=== PATIENT | male | born 1980 ===

== ENCOUNTER 2018-04-07 17:19 | Emergency (ER) | payer MEDICAID ==
[2018-04-07 17:26] VITALS: RESP 18
[2018-04-07] MEDS ORDERED: Lidocaine 5% Patch TD STA (17:32)
[2018-04-07] MEDS ORDERED: Lidocaine 5% Patch TD ONE (17:41)
--- NOTE | 2018-04-07 18:11 | C.PDOC ---
History Of Present Illness 37 year old male presents to the ED complaining of back pain that began yesterday. Patient reports he was seen by pain management in [place] 6 months ago where he was evaluated, had an MRI and he got a "spine injection" that made him feel better until yesterday when he picked up an ice cooler and he developed pain. He denies any radiation of pain, incontinence, urinary symptoms , weakness, numbness, tingling or other associated symptoms. Time Seen by Provider: 04/07/18 17:29 Chief Complaint (Nursing): Back Pain History Per: Patient History/Exam Limitations: no limitations Onset/Duration Of Symptoms: Hrs Current Symptoms Are (Timing): Still Present Associated Symptoms: denies: Incontinence, New Weakness, New Numbness Exacerbating Factor(s): Movement Past Medical History Reviewed: Historical Data, Nursing Documentation, Vital Signs Vital Signs: Last Vital Signs Temp 98.7 F 04/07/18 18:20 Pulse 86 04/07/18 18:20 Resp 18 04/07/18 18:20 BP 127/68 04/07/18 18:20 Pulse Ox 98 04/07/18 19:17 - Medical History PMH: HIV Surgical History: No Surg Hx Family History: States: No Known Family Hx - Social History Hx Alcohol Use: No Hx Substance Use: No Review Of Systems Except As Marked, All Systems Reviewed And Found Negative. Respiratory: Negative for: Shortness of Breath Genitourinary: Negative for: Incontinence Musculoskeletal: Positive for: Back Pain Neurological: Negative for: Weakness, Numbness Physical Exam - Physical Exam Appears: Non-toxic, No Acute Distress Skin: Normal Color, Warm, Dry Head: Atraumatic, Normacephalic Eye(s): bilateral: Normal Inspection Oral Mucosa: Moist Neck: Supple Back: Vertebral Tenderness, Muscle Spasm (Bilateral ), Paraspinal Tenderness, Other (Midline and paraspinal pain with movement and bending ) Extremity: Normal ROM Neurological/Psych: Oriented x3, Normal Motor, Normal Sensation, Normal Reflexes Gait: Steady ED Course And Treatment O2 Sat by Pulse Oximetry: 98 (RA) Pulse Ox Interpretation: Normal Medical Decision Making Medical Decision Making: Impression: Low back pain Orders: Lidoderm patch Toradol 60mg IM Valium 5mg PO On reassessment, patient reports feeling better. Patient is ambulatory. Patient stable and ready for discharge. Patient instructed to follow up with pain management. Disposition - Disposition Referrals: Apolinar Melchor MD [Staff Provider] - Sharan Simental MD [Staff Provider] - Disposition: HOME/ ROUTINE Disposition Time: 18:13 Condition: IMPROVED Additional Instructions: Follow up with PMD within 1-2 days. Return to ED if feel worse. Prescriptions: Lidocaine 5% [Lidoderm] 1 patch TP DAILY #30 patch Ketorolac Tromethamine [Toradol] 10 mg PO TID #30 tab diaZEpam [Valium] 2 mg PO TID #15 tab Instructions: Low Back Pain in Adults Forms: [employer] (Salvadorean) - Clinical Impression Clinical Impression: Low back pain - PA / PERSONAL COACH / Resident Statement MD/DO has reviewed & agrees with the documentation as recorded. - Scribe Statement The provider has reviewed the documentation as recorded by the Scribe Susan Boyd All medical record entries made by the Scribe were at my direction and personally dictated by me. I have reviewed the chart and agree that the record accurately reflects my personal performance of the history, physical exam, medical decision making, and the department course for this patient. I have also personally directed, reviewed, and agree with the discharge instructions and disposition.
[2018-04-07 18:20] VITALS: BP 127/68; PULSE 86; TEMP 98.7
[2018-04-07 18:36] VITALS: O2SAT 98
== END 2018-04-07 18:21 | disposition home or self-care (01) ==
LOC: C.ER 17:19
DX: M54.5 Low back pain (principal)
CPT/HCPCS: 96372; 99283; J1885

== ENCOUNTER 2018-07-31 20:10 | Emergency (ER) | payer MEDICAID ==
--- NOTE | 2018-07-31 20:44 | C.PDOC ---
History Of Present Illness 38 year old male presents to the emergency department with complaints of nausea, vomiting, and abdominal pain described as a burning sensation since 07-29-18. Patient states he stopped drinking on that date, but has not experienced any "shakes". Time Seen by Provider: 07/31/18 20:43 Chief Complaint (Nursing): GI Problem History Per: Patient History/Exam Limitations: no limitations Onset/Duration Of Symptoms: Days (3) Current Symptoms Are (Timing): Still Present Context: Other (alcohol) Location Of Pain/Discomfort: Other (abdomen) Quality Of Discomfort: Burning, "Pain" Associated Symptoms: Nausea, Vomiting Past Medical History Reviewed: Historical Data, Nursing Documentation, Vital Signs Vital Signs: Last Vital Signs Temp 99.6 F 07/31/18 20:20 Pulse 85 07/31/18 20:20 Resp 18 07/31/18 20:20 BP 123/79 07/31/18 20:20 Pulse Ox 99 07/31/18 20:20 - Medical History PMH: HIV Surgical History: No Surg Hx Family History: States: No Known Family Hx - Social History Hx Alcohol Use: Yes Hx Substance Use: No - Immunization History Hx Tetanus Toxoid Vaccination: No Hx Influenza Vaccination: No Hx Pneumococcal Vaccination: No Review Of Systems Constitutional: Negative for: Fever, Chills Gastrointestinal: Positive for: Nausea, Vomiting, Abdominal Pain Physical Exam - Physical Exam Appears: Non-toxic, No Acute Distress Skin: Warm, Dry Head: Normacephalic Eye(s): bilateral: Normal Inspection, PERRL, EOMI Oral Mucosa: Moist Neck: Trachea Midline, Supple Chest: Symmetrical, No Tenderness Cardiovascular: Rhythm Regular, No Murmur Respiratory: No Rales, No Rhonchi, No Wheezing Gastrointestinal/Abdominal: Soft, No Tenderness, No Guarding, No Rebound Neurological/Psych: Oriented x3 ED Course And Treatment - Laboratory Results Result Diagrams: 07/31/18 20:52 07/31/18 20:52 O2 Sat by Pulse Oximetry: 99 (RA) Pulse Ox Interpretation: Normal Progress Note: Plan: Chemistry. Bloodwork. Protonix 40mg IVP. NaCl IV Fluids. Zofran 4mg IVP. Urinalysis Reevaluation Time: 23:15 Reassessment Condition: Improved Disposition Counseled Patient/Family Regarding: Studies Performed, Diagnosis, Need For Fol lowup, Rx Given - Disposition Referrals: Jay Jacome DPM [[facility]] - Disposition: HOME/ ROUTINE Disposition Time: 20:43 Condition: FAIR Additional Instructions: Please return if symptoms recur Prescriptions: Ondansetron ODT [Zofran ODT] 1 odt PO BID PRN #10 odt PRN Reason: Nausea/Vomiting Pantoprazole Sodium [Protonix] 40 mg PO DAILY #15 ect Instructions: Acute Abdomen (Belly Pain), Adult (DC), Alcohol Abuse and Alcoholism (DC) Forms: [employer] (Czech) - Clinical Impression Clinical Impression: Abdominal pain, Gastritis, Alcohol abuse, Elevated liver enzymes - Scribe Statement The provider has reviewed the documentation as recorded by the Scribe (Willi Tapia) Provider Attestation: All medical record entries made by the Scribe were at my direction and personally dictated by me. I have reviewed the chart and agree that the record accurately reflects my personal performance of the history, physical exam, medical decision making, and the department course for this patient. I have also personally directed, reviewed, and agree with the discharge instructions and disposition.
[2018-07-31] MEDS ORDERED: Sodium Chloride 0.9% 1,000 ML IV ONE (20:48)
[2018-07-31 20:57] LABS: BASO # 0.1 K/uL (0.0-0.2); BASO % 1.1 % (0.0-2.0); EOS # 0.1 K/uL (0.0-0.7); EOS % 1.6 % (0.0-4.0); HEMOGLOBIN 15.7 g/dL (12.0-18.0); LYMPH # 1.9 K/uL (1.0-4.3); LYMPH % 25.8 % (20.0-40.0); MEAN CELL VOLUME 85.8 fL (80.0-94.0); MEAN CORPUSCULAR HEMOGLOBIN 28.7 pg (27.0-31.0); MEAN CORPUSCULAR HGB CONC 33.4 g/dL (33.0-37.0); MEAN PLATELET VOLUME 8.3 fL (7.2-11.7); MONO # 0.8 K/uL (0.0-0.8); MONO % 11.6 % (0.0-10.0); NEUT # 4.3 K/uL (1.8-7.0); NEUT % 59.9 % (50.0-75.0); NRBC % 0.2 % (0.0-2.0); RBC 5.48 Mil/uL (4.40-5.90); RED CELL DISTRIBUTION WIDTH 13.9 % (11.5-14.5); WHITE BLOOD COUNT 7.2 K/uL (4.8-10.8)
[2018-07-31] MEDS ORDERED: Sodium Chloride 0.9% 1,000 ML ONE (20:57)
[2018-07-31 21:05] LABS: INR 1.3; PROTHROMBIN TIME 13.7 SECONDS (9.7-12.2)
[2018-07-31 21:08] LABS: ALT/SGPT 729 U/L (21-72); BLOOD UREA NITROGEN 9 mg/dL (9-20); CALCIUM 9.3 mg/dl (8.6-10.4); GFR NON-AFRICAN AMERICAN > 60; LIPASE 220 U/L (23-300)
[2018-07-31 21:16] LABS: URINE BILIRUBIN 1+ (NEGATIVE); URINE BLOOD NEGATIVE (NEGATIVE); URINE CLARITY Hazy (Clear); URINE COLOR Amber (YELLOW); URINE GLUCOSE (UA) NORMAL (Normal); URINE LEUKOCYTE ESTERASE NEG Leu/uL (Negative); URINE PROTEIN NEGATIVE (NEGATIVE)
[2018-07-31 21:28] LABS: AST/SGOT 792 U/L (17-59)
[2018-07-31 22:30] VITALS: RESP 16
[2018-08-01] VITALS: BP 120/68; PULSE 74; TEMP 98.6; O2SAT 97
--- NOTE | 2018-08-01 11:06 | CT ---
Date of service: 07/31/2018 PROCEDURE: CT Abdomen and Pelvis with contrast HISTORY: elevated liver enzymes, ruq pain COMPARISON: None. TECHNIQUE: Following the intravenous administration of iodinated contrast material, a CT examination of the abdomen and pelvis performed from the domes of the diaphragms to the symphysis pubis with reformatted datasets provided in axial, sagittal and coronal planes. Oral contrast was not administered as per referring physician request. Coronal and sagittal reformats were generated. contrast dose: Visipaque 320, 100 Radiation dose: Total exam DLP = 1261.73 mGy-cm. This CT exam was performed using one or more of the following dose reduction techniques: Automated exposure control, adjustment of the mA and/or kV according to patient size, and/or use of iterative reconstruction technique. FINDINGS: LOWER THORAX: Unremarkable. LIVER: Diminished attenuation throughout the liver indicates hepatic steatosis. No cystic or solid hepatic mass or intrahepatic biliary dilatation appreciated. GALLBLADDER AND BILE DUCTS: Mural thickening is question with trace pericholecystic fluid collection. No radiodense cholelithiasis. PANCREAS: Unremarkable. No gross lesion or ductal dilatation. SPLEEN: Unremarkable. ADRENALS: Unremarkable. No mass. KIDNEYS AND URETERS: Unremarkable. No hydronephrosis. No solid mass. VASCULATURE: Unremarkable. No aortic aneurysm. No aortic atherosclerotic calcification or mural plaque present. BOWEL: Evaluation of the gastrointestinal tract is limited due to the lack of oral contrast administration. No obstruction. No gross mural thickening. APPENDIX: Normal appendix. PERITONEUM: Unremarkable. No free fluid. No free air. LYMPH NODES: Unremarkable. No enlarged lymph nodes. BLADDER: Unremarkable. REPRODUCTIVE: Unremarkable. BONES: No acute fracture. OTHER FINDINGS: None. IMPRESSION: 1. Hepatic steatosis. 2. Potential cholecystitis. Correlate with ultrasound or nuclear PET scan for further evaluation of bile flow. Concordant preliminary report from [facility], 07/31/2018.
== END 2018-07-31 23:59 | disposition home or self-care (01) ==
LOC: SUPCPDRO 20:10 → C.ER 20:10
DX: K29.70 Gastritis, unspecified, without bleeding (principal); R10.9 Unspecified abdominal pain; R74.8 Abnormal levels of other serum enzymes; F10.10 Alcohol abuse, uncomplicated; Y90.9 Presence of alcohol in blood, level not specified
CPT/HCPCS: 74177; 80053; 80320; 81001; 82140; 83690; 85025; 85610; 85730; 96361; 96374; 96375; 99285; C9113; J1885; J2405; J2765; J7030